=== PATIENT | female | born 1990 | race Caucasian/White ===

== ENCOUNTER 2023-05-01 01:18 | Inpatient (IN) | payer MEDICAID ==
[~2023-05-01] VITALS: Ht 162.6 cm; Wt 50.8 kg
[2023-05-01] MEDS ORDERED: ONDANSETRON HCL 4 MG TABLET PO ONE (02:15)
[2023-05-01 02:18] LABS: BASOPHILS % (AUTO) 0.3 % (0.0-2.0); EOSINOPHILS % (AUTO) 0 % (1.0-6.0); HEMATOCRIT 35.3 % (36-46); HEMOGLOBIN 11.8 g/dL (12.0-16.0); LYMPHOCYTES # (AUTO) 0.9 K/uL (1.0-4.8); LYMPHOCYTES % (AUTO) 5.6 % (22.0-44.0); MEAN CORPUSCULAR HEMOGLOBIN 29.9 pg (26.0-34.0); MEAN CORPUSCULAR HGB CONC 33.4 G/dL (31.0-37.0); MEAN CORPUSCULAR VOLUME 90 fL (80-100); MONOCYTES # (AUTO) 0.6 K/uL (0.1-1.0); MONOCYTES % (AUTO) 3.6 % (2.0-9.0); NEUTROPHILS # (AUTO) 15.1 K/uL (1.8-7.7); NEUTROPHILS % (AUTO) 90.5 % (40.0-70.0); PLATELET COUNT (AUTO) 316 K/uL (150-450); RED BLOOD CELL COUNT(AUTO) 3.94 MIL/uL (4.00-5.20); RED CELL DISTRIBUTION WIDTH 13.9 % (11.5-14.5); WHITE BLOOD COUNT (AUTO) 16.7 K/uL (4.5-11.0)
[2023-05-01] MEDS ORDERED: DiphenhydrAMINE HCL 50 MG/ML VIAL IM ONE (02:30)
[2023-05-01] MEDS ORDERED: LORazepam 2 MG/ML VIAL IM ONE (02:30)
[2023-05-01] MEDS ORDERED: HALOPERIDOL LACTATE 5 MG/ML VIAL IM ONE (02:30)
[2023-05-01] MEDS ORDERED: SODIUM CHLORIDE 0.9% 1,000 ML IV ONE (02:30)
[2023-05-01 02:32] LABS: ANION GAP 17 mmol/L (8-16); CALCIUM, TOTAL 9.2 mg/dL (8.8-10.5); CARBON DIOXIDE 23 mmol/L (22-29); CHLORIDE 102 mmol/L (98-107); CREATININE 0.92 mg/dL (0.60-1.30); GLOMERULAR FILTR. RATE CALC > 60 mL/min (>60); GLUCOSE,RANDOM 194 mg/dL (70-110); POTASSIUM 3.9 mmol/L (3.5-5.1); SODIUM SERUM 142 mmol/L (136-145); UREA NITROGEN, BLOOD 15 mg/dL (7-18)
[2023-05-01 02:36] LABS: ALCOHOL, BLOOD (SERUM) < 3 mg/dL (0-10)
[2023-05-01 02:37] LABS: ALANINE AMINOTRANSFERASE 16 U/L (12-78); ALKALINE PHOSPHATASE 67 U/L (46-116); ASPARTATE AMINOTRANSFERASE 25 U/L (15-37); BILIRUBIN,TOTAL 0.8 mg/dL (0.1-1.0); LIPASE 16 U/L (16-77); TOTAL PROTEIN, SERUM 7.3 g/dL (6.4-8.2)
[2023-05-01 02:39] LABS: RBC MORPHOLOGY COMMENT NORMAL RBC MORPH
[2023-05-01 04:21] LABS: COVID AG,FIA SOURCE NASOPHARYNGEAL
[2023-05-01] MEDS ORDERED: LORazepam 2 MG TABLET PO PRN (04:30)
[2023-05-01] MEDS ORDERED: OLANZapine 5 MG RAPDIS TABLET PO PRN (04:30)
[2023-05-01] MEDS ORDERED: ZOLPIDEM TARTRATE 10 MG TABLET PO PRN (04:30)
[2023-05-01 04:41] LABS: SARS-COV2 (COVID) ANTIGEN,FIA Negative (Negative)
[2023-05-01 13:13] LABS: APPEARANCE,URINE HAZY (CLEAR); BILIRUBIN,URINE NEGATIVE (NEGATIVE); COLOR,URINE YELLOW (YELLOW); GLUCOSE, URINE (UA) 70-100 mg/dL (NEGATIVE); KETONES,URINE =>150 mg/dL (NEGATIVE); LEUKOCYTE ESTERASE ,URINE NEGATIVE (NEGATIVE); NITRATE,URINE NEGATIVE (NEGATIVE); OCCULT BLOOD,URINE NEGATIVE (NEGATIVE); PH,URINE 5.5 (5.0-8.0); PROTEIN,URINE 30-70 mg/dL (NEGATIVE); SPECIFIC GRAVITIY, URINE 1.036 (1.003-1.030); UROBILINOGEN,URINE <=1.0 mg/dL (<=1.0)
[2023-05-01 13:14] LABS: PH,URINE DRUG SCREEN 5.5 (5.0-8.0)
[2023-05-01 13:20] LABS: ALCOHOL, URINE DRUG SCREEN NEGATIVE (NEGATIVE); AMPHET/METH SCREEN,URINE NEGATIVE (NEGATIVE); BARBITURATE SCREEN, URINE NEGATIVE (NEGATIVE); BENZODIAZEPINES SCREEN,URINE NEGATIVE (NEGATIVE); CANNABINOID SCREEN,URINE POSITIVE (NEGATIVE); COCAINE SCREEN,URINE NEGATIVE (NEGATIVE); METHADONE SCREEN, URINE NEGATIVE (NEGATIVE); OPIATE SCREEN,URINE NEGATIVE (NEGATIVE); PHENCYCLIDINE SCREEN,URINE NEGATIVE (NEGATIVE)
[2023-05-01 13:23] LABS: RBC,URINE None Seen /HPF (0-2)
[2023-05-01 13:24] LABS: BACTERIA,URINE None Seen /HPF (None Seen); HYALINE CASTS, URINE 0-2 /LPF (None Seen); SQUAMOUS EPITHELIAL CELL,UR Moderate /LPF (None Seen); WBC,URINE 0-2 /HPF (0-5)
[2023-05-01 22:15] VITALS: BP 112/70; PULSE 68; RESP 18; TEMP 97.7; O2SAT 99
[2023-05-02 07:29] LABS: BASOPHILS % (AUTO) 0.6 % (0.0-2.0); EOSINOPHILS % (AUTO) 1.1 % (1.0-6.0); HEMATOCRIT 33.5 % (36-46); HEMOGLOBIN 11.4 g/dL (12.0-16.0); LYMPHOCYTES # (AUTO) 2.1 K/uL (1.0-4.8); LYMPHOCYTES % (AUTO) 27.6 % (22.0-44.0); MEAN CORPUSCULAR HEMOGLOBIN 30.5 pg (26.0-34.0); MEAN CORPUSCULAR VOLUME 90 fL (80-100); MONOCYTES # (AUTO) 0.7 K/uL (0.1-1.0); MONOCYTES % (AUTO) 9.1 % (2.0-9.0); NEUTROPHILS # (AUTO) 4.7 K/uL (1.8-7.7); NEUTROPHILS % (AUTO) 61.6 % (40.0-70.0); PLATELET COUNT (AUTO) 251 K/uL (150-450); RED BLOOD CELL COUNT(AUTO) 3.74 MIL/uL (4.00-5.20); RED CELL DISTRIBUTION WIDTH 13.9 % (11.5-14.5); WHITE BLOOD COUNT (AUTO) 7.6 K/uL (4.5-11.0)
[2023-05-02 08:44] VITALS: BP 107/67; PULSE 70; RESP 19; TEMP 97.9; O2SAT 100
[2023-05-02] MEDS ORDERED: MAGNESIUM HYDROXIDE SUSPENSION 30 ML UDCUP PO PRN (11:00)
[2023-05-02] MEDS ORDERED: MAG HYDROX/AL HYDROX/SIMETH ES 30 ML SUSPENSION UDCUP PO PRN (11:00)
[2023-05-02] MEDS ORDERED: GuaiFENesin/D-METHORPHAN [SUGAR-FREE] 200-20MG/10 ML SYRUP UDCUP PO PRN (11:00)
[2023-05-02] MEDS ORDERED: LOPERAMIDE HCL 2 MG CAPSULE PO PRN (11:00)
[2023-05-02] MEDS ORDERED: HydrOXYzine PAMOATE 50 MG CAPSULE PO PRN (11:00)
[2023-05-02] MEDS ORDERED: ACETAMINOPHEN 325 MG TABLET PO PRN (11:00)
[2023-05-02] MEDS ORDERED: PROMETHAZINE HCL 25 MG TABLET PO PRN (11:00)
[2023-05-02] MEDS ORDERED: TUBERCULIN, PURIFIED PROTEIN DERIVATIVE 5 TU/0.1 ML SYRINGE ID ONE (11:00)
[2023-05-02] MEDS ORDERED: DULoxetine HCL 20 MG CAPSULE PO ONE (11:00)
[2023-05-02] MEDS ORDERED: THIAMINE 100 MG TABLET PO SCH (17:00)
[2023-05-02] MEDS ORDERED: MELATONIN 5 MG TABLET PO SCH (21:00)
[2023-05-02] MEDS ORDERED: MIRTAZAPINE 15 MG TABLET PO SCH (21:00)
[2023-05-03 07:07] LABS: HEPATITIS C AB (EIA) Non Reactive (Non Reactive)
[2023-05-03] MEDS ORDERED: DULoxetine HCL 20 MG CAPSULE PO SCH (09:00)
[2023-05-03] MEDS ORDERED: OMEGA-3/DHA/EPA/FISH OIL 1,000 MG CAPSULE PO SCH (09:00)
[2023-05-03] MEDS ORDERED: MULTIVITAMINS WITH MINERALS, THERAPEUTIC TABLET PO SCH (09:00)
[2023-05-03] MEDS ORDERED: FOLIC ACID 1 MG TABLET PO SCH (09:00)
== END 2023-05-02 18:15 | disposition left against medical advice (07) | DRG 751 ==
LOC: EMS 01:19 → B2S 21:00
PROVIDERS: ADMIT Psychiatry & Neurology Psychiatry; ATTEND Psychiatry & Neurology Psychiatry
DX: F33.2 Major depressive disorder, recurrent severe without psychotic features (principal); R45.851 Suicidal ideations; F17.210 Nicotine dependence, cigarettes, uncomplicated; F41.0 Panic disorder [episodic paroxysmal anxiety]; R11.10 Vomiting, unspecified; J44.9 Chronic obstructive pulmonary disease, unspecified; F12.20 Cannabis dependence, uncomplicated; Z53.29 Procedure and treatment not carried out because of patient's decision for other reasons; Z20.822 Contact with and (suspected) exposure to COVID-19
CPT/HCPCS: 74176; 80053; 80307; 81001; 83690; 84703; 85025; 86803; 87340; 99291; G0480; J1200; J1630; J2060

== ENCOUNTER 2024-08-16 08:34 | Inpatient (IN) | payer MEDICAID ==
[~2024-08-16] VITALS: Ht 162.6 cm; Wt 57.8 kg
[2024-08-16] MEDS ORDERED: MIRT45TA83 PO (08:46)
[2024-08-16] MEDS ORDERED: VENL-67 PO (08:46)
[2024-08-16] MEDS ORDERED: LEVO1TAB93 PO (08:46)
[2024-08-16] MEDS: DiphenhydrAMINE HCL 50 MG/ML VIAL IVP ONE (08:59)
[2024-08-16] MEDS: HALOPERIDOL LACTATE 5 MG/ML VIAL IVP ONE (09:00)
[2024-08-16] MEDS: LORazepam 2 MG/ML VIAL IVP ONE (09:00)
[2024-08-16 09:15] LABS: ANION GAP 14 mmol/L (8-16); CARBON DIOXIDE 24 mmol/L (22-29); CHLORIDE 103 mmol/L (98-107); CREATININE 1.26 mg/dL (0.60-1.30); GLOMERULAR FILTR. RATE CALC 48 mL/min (>60); GLUCOSE,RANDOM 143 mg/dL (70-110); POTASSIUM 3.1 mmol/L (3.5-5.1); SODIUM SERUM 141 mmol/L (136-145); UREA NITROGEN, BLOOD 13 mg/dL (7-18)
[2024-08-16 09:22] LABS: BASOPHILS % (AUTO) 0.2 % (0.0-2.0); EOSINOPHILS % (AUTO) 0 % (1.0-6.0); HEMATOCRIT 35.5 % (36-46); LYMPHOCYTES # (AUTO) 0.9 K/uL (1.0-4.8); LYMPHOCYTES % (AUTO) 7.5 % (22.0-44.0); MEAN CORPUSCULAR HEMOGLOBIN 28.8 pg (26.0-34.0); MEAN CORPUSCULAR HGB CONC 33.7 G/dL (31.0-37.0); MEAN CORPUSCULAR VOLUME 86 fL (80-100); MONOCYTES # (AUTO) 0.5 K/uL (0.1-1.0); NEUTROPHILS # (AUTO) 10.9 K/uL (1.8-7.7); PLATELET COUNT (AUTO) 334 K/uL (150-450); RED BLOOD CELL COUNT(AUTO) 4.15 MIL/uL (4.00-5.20); RED CELL DISTRIBUTION WIDTH 15.6 % (11.5-14.5); WHITE BLOOD COUNT (AUTO) 12.3 K/uL (4.5-11.0)
[2024-08-16 09:23] LABS: NEUTROPHILS % (AUTO) 88.3 % (40.0-70.0)
[2024-08-16 09:55] LABS: ALCOHOL, BLOOD (SERUM) < 3 mg/dL (0-10)
[2024-08-16 10:06] LABS: COVID AG,FIA SOURCE NASAL SWAB
[2024-08-16] MEDS ORDERED: HALOPERIDOL 5 MG TABLET PO PRN (10:15)
[2024-08-16] MEDS ORDERED: LORazepam 2 MG TABLET PO PRN (10:15)
[2024-08-16 10:41] LABS: SARS-COV2 (COVID) ANTIGEN,FIA Negative (Negative)
[2024-08-16] MEDS: POTASSIUM CHL 10 MEQ/WATER 50 ML IV SCH (18:42)
[2024-08-16 19:10] VITALS: O2SAT 98
[2024-08-16 19:57] LABS: APPEARANCE,URINE CLEAR (CLEAR); BILIRUBIN,URINE NEGATIVE (NEGATIVE); COLOR,URINE YELLOW (YELLOW); GLUCOSE, URINE (UA) TRACE mg/dL (NEGATIVE); KETONES,URINE =>150 mg/dL (NEGATIVE); LEUKOCYTE ESTERASE ,URINE NEGATIVE (NEGATIVE); NITRATE,URINE NEGATIVE (NEGATIVE); OCCULT BLOOD,URINE NEGATIVE (NEGATIVE); PROTEIN,URINE 30-70 mg/dL (NEGATIVE); UROBILINOGEN,URINE <=1.0 mg/dL (<=1.0)
[2024-08-16 20:05] LABS: ALCOHOL, URINE DRUG SCREEN NEGATIVE (NEGATIVE); AMPHET/METH SCREEN,URINE NEGATIVE (NEGATIVE); BARBITURATE SCREEN, URINE NEGATIVE (NEGATIVE); BENZODIAZEPINES SCREEN,URINE NEGATIVE (NEGATIVE); CANNABINOID SCREEN,URINE POSITIVE (NEGATIVE); COCAINE SCREEN,URINE NEGATIVE (NEGATIVE); METHADONE SCREEN, URINE NEGATIVE (NEGATIVE); OPIATE SCREEN,URINE NEGATIVE (NEGATIVE); PHENCYCLIDINE SCREEN,URINE NEGATIVE (NEGATIVE)
[2024-08-16 22:05] VITALS: BP 105/65; PULSE 72; RESP 18; TEMP 97.8; O2SAT 98
[2024-08-16] MEDS: ZOLPIDEM TARTRATE 10 MG TABLET PO PRN (22:18)
[2024-08-17 08:35] VITALS: BP 113/72; PULSE 72; RESP 16; TEMP 96.5; O2SAT 98
[2024-08-17 09:00] LABS: HEMOGLOBIN A1C 5.4 % (3.8-5.6)
[2024-08-17 09:22] LABS: CHOL/HDL RATIO 2.2 (3.9-5.7); FREE T4 (FREE THYROXINE) 0.81 ng/dL (0.76-1.46); THYROID STIMULATING HORMONE 0.81 uIU/mL (0.36-3.74)
[2024-08-17] MEDS ORDERED: BENZOCAINE/MENTHOL LOZENGE PO PRN (13:45)
[2024-08-17] MEDS ORDERED: DOCUSATE SODIUM 100 MG CAPSULE PO PRN (13:45)
[2024-08-17] MEDS ORDERED: PETROLATUM,WHITE 28 GM JELLY TP PRN (13:45)
[2024-08-17] MEDS ORDERED: CloNIDine HCL 0.1 MG TABLET PO PRN (13:45)
[2024-08-17] MEDS ORDERED: LOPERAMIDE HCL 2 MG CAPSULE PO PRN (13:45)
[2024-08-17] MEDS ORDERED: IBUPROFEN 600 MG TABLET PO PRN (13:45)
[2024-08-17] MEDS ORDERED: BACITRACIN 28 GM OINTMENT TP PRN (13:45)
[2024-08-17] MEDS ORDERED: ACETAMINOPHEN 325 MG TABLET PO PRN (13:45)
[2024-08-17] MEDS ORDERED: MAG HYDROX/ALUMINUM HYD/SIMETH ES 30 ML SUSPENSION UDCUP PO PRN (13:45)
[2024-08-17] MEDS ORDERED: MAGNESIUM HYDROXIDE SUSPENSION 30 ML UDCUP PO PRN (13:45)
[2024-08-17] MEDS ORDERED: OMEPRAZOLE 20 MG CAPSULE PO PRN (13:45)
[2024-08-17] MEDS ORDERED: ALBUTEROL SULFATE HFA 90 MCG/PUFF 8 GM INHALER IH PRN (13:45)
[2024-08-17] MEDS: VENLAFAXINE HCL 75 MG ER CAPSULE PO SCH (14:45)
[2024-08-17 20:20] VITALS: BP 121/71; PULSE 76; RESP 18; TEMP 98; O2SAT 98
[2024-08-18 08:52] VITALS: BP 103/72; PULSE 67; RESP 16; TEMP 97.3; O2SAT 95
[2024-08-18] MEDS ORDERED: VENL-67 PO (14:21)
[2024-08-18] MEDS: ONDANSETRON 4 MG TABLET PO PRN (17:24)
[2024-08-18 20:03] VITALS: BP 120/79; PULSE 66; RESP 17; TEMP 97.4
[2024-08-19 00:06] LABS: HEPATITIS C AB (EIA) Non Reactive (Non Reactive)
[2024-08-19 08:22] VITALS: BP 127/88; PULSE 91; RESP 16; TEMP 97.5; O2SAT 97
== END 2024-08-19 09:19 | disposition home or self-care (01) | DRG 751 ==
LOC: EMS 08:38 → B3A 21:23
PROVIDERS: ADMIT Psychiatry & Neurology Psychiatry; ATTEND Psychiatry & Neurology Psychiatry
PROC: GZHZZZZ Group Psychotherapy (ICD-10-PCS; principal; 2024-08-17)
PROC: GZ56ZZZ Individual Psychotherapy, Supportive (ICD-10-PCS; 2024-08-17)
DX: F33.2 Major depressive disorder, recurrent severe without psychotic features (principal); R45.851 Suicidal ideations; E87.6 Hypokalemia; Z20.822 Contact with and (suspected) exposure to COVID-19; F41.9 Anxiety disorder, unspecified; F12.90 Cannabis use, unspecified, uncomplicated; K59.00 Constipation, unspecified; G47.00 Insomnia, unspecified; R06.4 Hyperventilation; Z55.9 Problems related to education and literacy, unspecified; Z59.9 Problem related to housing and economic circumstances, unspecified; Z63.9 Problem related to primary support group, unspecified; Z65.3 Problems related to other legal circumstances; Z78.1 Physical restraint status; Z87.891 Personal history of nicotine dependence
CPT/HCPCS: 80048; 80061; 80307; 81003; 83036; 84132; 84439; 84443; 85025; 86803; 87340; 99285; G0480; J1200; J1630; J2060; J3480; Q0162

== ENCOUNTER 2025-02-27 00:01 | Emergency (ER) | payer MEDICAID ==
[~2025-02-27] VITALS: Ht 157.5 cm; Wt 45.5 kg
[~2025-02-27 00:01] MED LIST: DIPH-1243 PO; GABA-1181 PO; HALO5TAB23 PO; LEVO1TAB93 PO; MELA5TAB40 PO; NALT50TA33 PO; NITR-104 PO; PARO-37 PO
[2025-02-27 02:30] VITALS: BP 118/68; PULSE 71; RESP 16; TEMP 97.3; O2SAT 98
== END 2025-02-27 03:35 | disposition home or self-care (01) ==
LOC: EMS 00:02
DX: F41.9 Anxiety disorder, unspecified (principal); R11.10 Vomiting, unspecified; F32.A Depression, unspecified; Z88.8 Allergy status to other drugs, medicaments and biological substances; Z79.3 Long term (current) use of hormonal contraceptives; Z79.899 Other long term (current) drug therapy
CPT/HCPCS: 99283; 96372; J1630